=== PATIENT | female | born 1960 | race Caucasian/White ===

== ENCOUNTER 2016-08-17 11:00 | Outpatient (CLI) | payer OTHER, MEDICARE ==
[~2016-08-17] VITALS: Ht 157.5 cm; Wt 49.1 kg
--- NOTE | ~2016-08-17 | HEMODYNAMI ---
PATIENT:INDIANA HERNANDEZ MEDICAL RECORD: [id number] : 58 LOCATION:[facility] ADMISSION DATE: 08/17/16 Generatedon:08/17/201614:13 Patient name: INDIANA HERNANDEZ Patient #: [id number] SS N: : 1960 Date of study: 08/17/2016 Page: Of Hemodynamic Procedure Report Patient Data Patient Demographics Procedure consent was obtained First Name: INDIANA Gender: Female Last Name: DAVID : 1960 Patient #: [id number] Age: 56 year(s) Race: Additional ID: [id number] Contact details [address]: [address] [place] [address] State: [place] City: [place] Zip code: [address] Past Medical History Allergies: No known allergies Admission Admission Data Admission Date: 08/17/2016 Admission Time: 11:00 Admit Source: Other Lab Results Lab Result Date: 08/17/2016 Lab Result Time: 0:00 Biochemistry Name Units Result Min Max Creatinine mg/dl 0.8 --(-*--)-- 0.6 1.3 CBC Name Units Result Min Max Hemoglobin g/dl 13.9 --(*---)-- 13.5 17.5 Procedure Procedure Types Cath Procedure Diagnostic Procedure [facility] w/Coronaries PCI Procedure Coronary Stent Initial Procedure Description Procedure Date Procedure Date: 08/17/2016 Procedure Start Time: 13:41 Procedure End Time: 14:12 Procedure Staff Name Function Jason Shipman MD Performing Physician Sebastien Leslie RT Scrub Giorgio Stewart RN Nurse Olivier Moran RN Octave Board Assembler Lillie Ferreira RT Monitor Procedure Data Cath Procedure Fluoroscopy Diagnostic fluoroscopy Total fluoroscopy Time: 7.2 time: 7.2 min min Diagnostic fluoroscopy Total fluoroscopy dose: dose: 1025 mGy 1025 mGy Contrast Material Contrast Material Type Amount (ml) Isovue 300 144 Entry Location Entry Primary Successful Side Size Upsize Upsize Entry Closure [place] ccessful Closure Location (Fr) 1 (Fr) 2 (Fr) Remarks Device Remarks Radial Right 6 Fr Mechanical artery Short Compression Estimated blood loss: 10 ml Diagnostic catheters Device Type Used For End Catheter Placement Terumo 5Fr [place] 110cm LV Angiography catheter Terumo 5Fr [place] 110cm Right Coronary catheter Angiography Terumo 5Fr [place] 110cm Left Coronary catheter Angiography Procedure Complications No complications Procedure Medications Medication Administration Route Dosage Oxygen NC 2 l/min Benadryl I.V. 50 mg Lidocaine 2% added to field 20 Heparin Flush Bag added to field 2 bags (1000units/500ml NS) 0.9% NaCl I.V. 100 ml/hr Radial Cocktail added to field 1 syringe (Verapomil 2mg/Nitro 400mcg/Heparin 1500units) Versed I.V. 1 mg Fentanyl I.V. 50 mcg Radial Cocktail I.A. 1 syringe (Verapomil 2mg/Nitro 400mcg/Heparin 1500units) Versed I.V. 1 mg Fentanyl I.V. 50 mcg Versed I.V. 1 mg Fentanyl I.V. 50 mcg Heparin Bolus I.V. 7500 units Plavix P.O. 600 mg Hemodynamics Rest HGB: 13.9 (g/dl) Heart Rate: 74 (bpm) Pressure Samples Time Site Value (mmHg) Purpose Heart Use Rate(bpm) 13:44 LV 120/10,16 Snapshot 89 Gradients Valve Time Site Site Mean SEP/DFP Peak To Heart Use 1 2 (mmHg) (sec/min) Peak Rate (mmHg) (bpm) Aortic 13:44 LV AO 77 Snapshots Pre Cath Intra NCS Post Cath Vital Signs Time Heart Resp SPO2 etCO2 XQ5ibed NIBP (mmHg) Rhythm Pain Sedation Rate (ipm) (%) (mmHg) (mmHg) Status Level (bpm) 13:27:38 71 13 100 0 0 137/93(105) NSR 0 (11) 10(A) , No pain 13:31:45 74 16 100 0 0 132/96(120) NSR 0 (11) 10(A) , No pain 13:35:57 73 15 99 0 0 132/79(96) NSR 0 (11) 10(A) , No pain 13:40:09 76 16 98 0 0 119/79(98) NSR 0 (11) 10(A) , No pain 13:44:21 94 14 98 0 0 111/66(93) NSR 0 (11) 9(A) , No pain 13:48:27 80 16 97 0 0 106/72(85) NSR 0 (11) 9(A) , No pain 13:52:31 84 15 95 0 0 112/74(92) NSR 0 (11) 9(A) , No pain 13:56:38 89 15 94 0 0 110/69(94) NSR 0 (11) 9(A) , No pain 14:00:46 90 14 94 0 0 114/67(91) NSR 0 (11) 10(A) , No pain 14:04:52 90 14 96 0 0 134/77(102) NSR 0 (11) 10(A) , No pain 14:09:02 89 19 98 0 0 136/88(114) NSR 0 (11) 10(A) , No pain Medications Time Medication Route Dose Verified Delivered Reason Note s Effectiveness by by 13:30:08 Oxygen NC 2 l/min Jason Buffie used for Dax Stewart RN procedure 13:30:19 Benadryl I.V. 50 mg Jason Buffie used for Dax Stewart RN procedure 13:30:27 Lidocaine 2% added 20ml Jason Jason for local to vial Dax Shipman MD anesthetic field 13:30:35 Heparin Flush added 2 bags Jason Jason used for Bag to Dax Shipman MD procedure (1000units/500ml field NS) 13:30:45 0.9% NaCl I.V. 100 Jason Buffie Per physician ml/hr Dax Stewart RN 13:34:52 Radial Cocktail added 1 Jason Buffie for (Verapomil to syringe Dax Stewart RN vasodilation 2mg/Nitro field 400mcg/Heparin 1500units) 13:40:16 Versed I.V. 1 mg Jason Buffie for sedation Dax Stewart RN 13:40:21 Fentanyl I.V. 50 mcg Jason Buffie for sedation Dax Stewart RN 13:43:22 Radial Cocktail I.A. 1 Jason Jason for (Verapomil syringe Dax Shipman MD vasodilation 2mg/Nitro 400mcg/Heparin 1500units) 13:43:26 Versed I.V. 1 mg Jason Buffie for sedation Dax Stewart RN 13:43:32 Fentanyl I.V. 50 mcg Jason Buffie for sedation Dax Stewart RN 13:47:21 Versed I.V. 1 mg Jason Buffie for sedation Dax Stewart RN 13:47:25 Fentanyl I.V. 50 mcg Jason Gaurangie for sedation Dax Stewart RN 13:52:32 Heparin Bolus I.V. 7,500 Jason Gaurangie for veri fied units Dax Stewart RN anticoagulation with dr shipman 14:06:31 Plavix P.O. 600 mg Jason Buffie for Dax Stewart RN antiplatelet therapy Procedure Log Time Note 13:17:50 Admit Source: Other 13:17:53 Diagnostic Cath status Elective 13:17:55 Olivier Moran RN sent for patient. Start room use. 13:17:57 Time tracking: Regular hours 13:18:00 Plan of Care:Hemodynamics will remain stable., Cardiac rhythm will remain stable., Comfort level will be maintained., Respiratory function will remain adequate., Patient/ family verbilizes understanding of procedure., Procedure tolerated without complication., Recovers from procedure without complications.. 13:20:24 Patient received from Outpatients to [facility] 2 Alert and oriented. Tansferred to table in Supine position. 13:20:25 Warm blankets applied, and jersey hugger turned on for patient comfort. 13:20:26 Correct patient and procedure confirmed by team. 13:20:27 Signed procedure consent form obtained from patient. 13:20:30 ECG and BP/O2 sat monitors applied to patient. 13:20:30 Full Disclosure recording started 13:26:41 Vital chart was started 13:30:08 Oxygen 2 l/min NC was given by Giorgio Stewart RN; used for procedure; 13:30:19 Benadryl 50 mg I.V. was given by Giorgio Stewart RN; used for procedure; 13:30:27 Lidocaine 2% 20ml vial added to field was given by Jason Shipman MD; for local anesthetic; 13:30:35 Heparin Flush Bag (1000units/500ml NS) 2 bags added to field was given by Jason Shipman MD; used for procedure; 13:30:45 0.9% NaCl 100 ml/hr I.V. was given by Giorgio Stewart RN; Per physician; 13:34:01 Baseline sample Acquired. 13:34:05 Rhythm: sinus rhythm 13:34:52 Radial Cocktail (Verapomil 2mg/Nitro 400mcg/Heparin 1500units) 1 syringe added to field was given by Giorgio Stewart RN; for vasodilation; 13:35:08 H&P Date Dictated: 08/09/2016 Within 30 days and on chart., H&P Addendum completed by physician on day of procedure. (MUST COMPLETE FOR ALL OUTPATIENTS). 13:35:11 Pre-procedure instructions explained to patient. 13:35:12 Pre-op teaching completed and patient verbalized understanding. 13:35:13 Family in waiting room. 13:35:16 Patient NPO since Midnight. 13:35:24 Patient allergic to No known allergies 13:35:30 Is the patient allergic to Iodine/contrast media? No. 13:35:33 Is patient on blood thinner?No 13:35:41 Patient diabetic? No. 13:35:47 Previous problem with sedation/anesthesia? No ? 13:35:48 Snore? No 13:35:49 Sleep apnea? No 13:35:50 Deviated septum? No 13:35:51 Opens mouth fully? Yes 13:35:51 Sticks out tongue? Yes 13:35:55 Airway obstruction? Yes COPD 13:35:57 Dentures? No ? 13:36:02 Pre procedure: right dorsailis pedis pulse 2+ Normal; easily identifiable; not easily obliterated 13:36:04 Modified Kris's test Ulnar < 7 seconds 13:36:07 Patient pain scale 0/10 ?. 13:36:13 IV patent on arrival in left hand with 0.9% NaCl at [facility]. 13:36:21 Lab results completed and on chart. 13:36:25 Right Radial & Right Groin area was prepped with chlora-prep and draped in sterile fashion 13:36:26 Alarms reviewed by R. N. 13:36:27 Sharps counted by scrub and verified by R.N. 13:37:43 Lab Result : Creatinine 0.8 mg/dl 13:37:43 Lab Result : Hemoglobin 13.9 g/dl 13:38:06 Final Timeout: patient, procedure, and site verified with staff and physician. All members of the team are in agreement. 13:38:12 Right Radial site verified by team. 13:38:15 Physical assessment completed. ASA score P 2 - A patient with mild systemic disease as per Jason Shipman MD. 13:38:18 Sedation plan: IV Moderate Sedation Versed, Fentanyl 13:39:45 Procedure started. 13:40:16 Versed 1 mg I.V. was given by Giorgio Stewart RN; for sedation; 13:40:21 Fentanyl 50 mcg I.V. was given by Giorgio Stewart RN; for sedation; 13:41:20 Local anesthetic to right radial artery with Lidocaine 2% by Jason Shipman MD.INITIAL ACCESS ONLY 13:41:40 Zero performed for pressure channel P1 13:42:39 A 6 Fr Short sheath was inserted into the Right Radial artery 13:43:22 Radial Cocktail (Verapomil 2mg/Nitro 400mcg/Heparin 1500units) 1 syringe I.A. was given by Jason Shipman MD; for vasodilation; 13:43:26 Versed 1 mg I.V. was given by Giorgio Stewart RN; for sedation; 13:43:32 Fentanyl 50 mcg I.V. was given by Giorgio Stewart RN; for sedation; 13:43:58 A Terumo 5Fr [place] 110cm catheter was advanced over the wire and used for LV Angiography. 13:44:21 LV gram done using MARTINEZ 13:44:22 LV hemodynamics recorded. 13:44:25 Injector settings: Ml/sec: 5, Volume: 15, 13:44:30 EF : 60 % 13:44:47 Catheter removed. 13:44:55 A Terumo 5Fr [place] 110cm catheter was advanced over the wire and used for Right Coronary Angiography. 13:47:03 A Terumo 5Fr [place] 110cm catheter was advanced over the wire and used for Left Coronary Angiography. 13:47:21 Versed 1 mg I.V. was given by Giorgio Stewart RN; for sedation; 13:47:25 Fentanyl 50 mcg I.V. was given by Giorgio Stewart RN; for sedation; 13:48:18 Cordis 6FR XBLAD 3.5 guide catheter opened to sterile field. 13:48:18 High Pressure Extension Tubing (Dax) opened to sterile field. 13:48:19 Fisher BMW [place] 2 J-tip 300cm 0.014 guide wir opened to sterile field. 13:48:19 Merit BasixCompak Inflation Kit opened to sterile field. 13:48:28 ACC PCI Site: mCirc has 95% stenosis. 13:48:30 ACC Pre-intervention RADHA Flow is 2. 13:50:57 6 Fr XBLAD 3.5 guide catheter was inserted over the wire 13:52:32 Heparin Bolus 7,500 units I.V. was given by Giorgio Stewart RN; for anticoagulation; verified with dr shipman 13:53:30 BMW wire advanced. 13:56:42 Inflation number: 1 A Harrison Sci [place] 2.0 X 15 balloon was prepped and advanced across the Mid CX, then inflated to 10 JESSICA for 0:19 (min:sec). 13:58:05 Inflation number: 2 The Harrison Sci [place] 2.0 X 15 balloon was reinflated across the Mid CX, to 16 JESSICA for 0:20 (min:sec). 13:58:33 Balloon removed over the wire. 14:01:47 Inflation Number: 3 A Dolor Technologiestronic Integrity 2.5 X 18 stent was prepped and advanced across the Mid CX. The stent was deployed at 16 JESSICA for 0:18 (min:sec). 14:02:21 Stent catheter was removed intact over wire. 14:02:26 Wire removed. 14:02:27 Guide catheter removed. 14:02:57 Terumo TR Band Standard opened to sterile field. 14:03:06 Sheath removed intact; hemostasis achieved with Mechanical Compression to the Right Radial artery. 14:03:08 Procedure ended.(Physican Out) 14:03:21 Fluoroscopy time 07.20 minutes. 14:03:27 Fluoroscopy dose: 1025 mGy 14:03:27 Flurop Dose total: 1025 14:03:32 Contrast amount:Isovue 300 144ml. 14:03:34 Sharps counted by scrub and verified by R.N. 14:03:53 TR band inflated with 12cc of air. 14:03:54 Insertion/operative site no bleeding no hematoma. 14:04:01 Post right radial artery:stable, clean and dry 14:04:03 Post Procedure Pulses reassessed and unchanged 14:04:06 Post-procedure physical assessment completed. ASA score P 2 - A patient with mild systemic disease as per Jason Shipman MD. 14:04:08 Post procedure rhythm: unchanged. 14:04:11 Estimated blood loss: 10 ml 14:04:13 Post procedure instruction explained to patient.Patient verbalizes understanding. 14:04:13 Patient needs reinforcement of post procedure teaching. 14:04:24 Procedure type changed to Cath procedure, Diagnostic procedure, LHC, LHC w/Coronaries, PCI procedure, Coronary Stent Initial 14:04:30 Procedure Complication : No complications 14:04:32 See physician's report for complete and final results. 14:05:03 Use device set Radial Dx 14:05:04 Acist Syringe opened to sterile field. 14:05:04 Cardinal Cath Pack opened to sterile field. 14:05:05 Bag Decanter opened to sterile field. 14:05:05 Terumo 6Fr Slender Glidesheath opened to sterile field. 14:05:06 St Jameel 260cm J .035 wire opened to sterile field. 14:05:07 Acist Hand Control opened to sterile field. 14:05:07 Acist Manifold opened to sterile field. 14:05:53 Cook 21G 4cm Radial Needle opened to sterile field. 14:06:31 Plavix 600 mg P.O. was given by Giorgio Stewart RN; for antiplatelet therapy; 14:07:38 Procedure and supply charges have been captured, reviewed, submitted and are correct. 14:12:17 Vital chart was stopped 14:12:19 Report given to Post Procedure Room. 14:12:22 Patient transfered to Post Procedure Room with Stretcher. 14:12:31 Procedure ended. 14:12:31 Full Disclosure recording stopped 14:12:53 End room use (Document Last) Intervention Summary Intervention Notes Time ActionType Lesion and Equipment Action# Pressure Duration Attributes Used 13:56:42 Inflate Mid CX Harrison 1 10 00:19 balloon Sci [place] 2.0 X 15 balloon 13:58:05 Reinflate Mid CX Harrison 2 16 00:20 balloon Sci [place] 2.0 X 15 balloon 14:01:47 Place stent Mid CX Medtronic 3 16 00:18 Integrity 2.5 X 18 stent Device Usage Item Name Manufacture Quantity Catalog Number [facility] Part Current [facility] Lot# / Charge Number Stock Stock Serial# Code Terumo 5Fr Terumo 1 [id number] 5 [place] 110cm catheter Cordis 6FR Cardinal 1 [id number] 155819 035053 10 XBLAD 3.5 Health guide catheter High Merit 1 [id number] 556438 58228 144137 10 Pressure Medical Extension Tubing (Shipman) Fisher BMW Fisher 1 [id number] 748597 780550 5 Avoca 2 Vascular J-tip 300cm 0.014 guide wir Merit Merit 1 [id number] 836336 416267 341437 15 BasixCompak Medical Inflation Kit Harrison Sci Harrison 1 [id number] 316618 418959 980278 1 [id number] TimZon 2.0 X 15 balloon Medtronic Medtronic 1 [id number] 636618 071789 317413 4 [id number] Integrity 2.5 X 18 stent Terumo TR Terumo 1 [id number] 166824 277956 241575 40 Band Standard Acist Acist 1 77784 797104 222692 894845 20 Syringe Medical Systems Inc Cardinal Cardinal 1 [id number] 826400 30521 322280 5 Cath Pack Health Bag Microtek 1 2002 691053 81750 782681 5 Decanter Medical Inc. Terumo 6Fr Terumo 1 [id number] 207743 515859 286726 [address] Jameel St Jameel 1 893174 308010 282804 315041 30 260cm J .035 wire Acist Hand Acist 1 90489 226329 478821 537070 5 Control Medical Systems Inc Acist Acist 1 00171 286026 771598 320947 5 Manifold Medical Systems Inc Cook 21G Yuma Medical 1 [id number] 200359 419017 5 4cm Radial Needle Signature Audit [place] Stage Time Signature Unsigned Intra-Procedure 08/17/2016 Lillie 2:13:10 PM Counts RT(R) Signatures Monitor : Lillie Signature : Counts RT Date : Time : [place] [id number] [place] [id number]
[2016-08-17] MEDS ORDERED: PROTONIX40 MG PO (11:52)
[2016-08-17] MEDS ORDERED: NEURONTIN600 MG PO (11:52)
[2016-08-17] MEDS ORDERED: PLAQUENIL200 MG PO (11:52)
[2016-08-17] MEDS ORDERED: CELEXA20 MG PO (11:53)
[2016-08-17] MEDS ORDERED: PRINZIDE 20-251 TA1 PO (11:53)
[2016-08-17] MEDS ORDERED: BROVANA15 MCG/2 M INH (11:54)
[2016-08-17] MEDS ORDERED: CYCLOBENZAPRINE10 MG PO (11:54)
[2016-08-17] MEDS ORDERED: MOBIC7.5 MG PO (11:54)
[2016-08-17 11:58] LABS: BASOPHILS 0.4 % (0.0-2.0); EOSINOPHILS 2.8 % (0-7); HEMATOCRIT 41.9 % (36.0-48.0); HEMOGLOBIN 13.9 g/dL (12-16); IMMATURE GRANULOCYTES 0.2 % (0-5); MCH 29.1 pg (26.0-34.0); MCHC 33.2 g/dL (31.0-37.0); MCV 87.8 fL (80.0-100.0); MEAN PLATELET VOLUME 9.7 fL (7.4-10.4); MONOCYTES 7.5 % (2-11); NEUTROPHILS 72.1 % (40-80); PLATELET COUNT 301 10x3/uL (130-400); RBC 4.77 10x6/uL (4.00-5.40); WBC 8.9 10x3/uL (4.8-10.8)
[2016-08-17 12:01] LABS: CALC OSMOLALITY 279 mosm/kg (275-300); CALCIUM 9.4 mg/dL (8.5-10.1); CARBON DIOXIDE 29.6 mmol/L (21.0-32.0); CHLORIDE - SERUM 101 mmol/L (98-107); CREATININE - SERUM 0.8 mg/dL (0.6-1.3); GLUCOSE 114 mg/dL (74-106); POTASSIUM - SERUM 4.2 mmol/L (3.5-5.1); SODIUM 139 mmol/L (136-145); UREA NITROGEN 15 mg/dL (7-18); eGFR NON AFRICAN AMERICAN 78 mL/min (90-120)
[2016-08-17 12:02] VITALS: BP 121/81; Ht 157.5 cm; Wt 49.1 kg
[2016-08-17] MEDS ORDERED: PLAVIX75 MG PO (14:18)
[2016-08-17] MEDS ORDERED: BAYER CHEWABLE81 MG PO (14:19)
--- NOTE | 2016-08-17 14:40 | NUR ---
HR 76 WITH CHEST PAIN DENIED BP 121/58 NO DISTRESS NOTED. TR BAND TO R/WRIST CDI NO BLEEDING NO HEMATOMA NOTED. SITTING WITH HOB UP 30 DEGREES TALKING TO FAMILY
--- NOTE | 2016-08-17 15:17 | NUR ---
REPORT CALLED TO ITALO HARVEY IN OPS. TRANSFERRED TO OPS VIA STRETCHER WITH ALL BELONGINGS AND FAMILY AT SIDE.
--- NOTE | 2016-08-17 15:17 | NUR ---
1500 RESTING WITH EYES CLOSED. NSR RATE 76 W NO C/O CHEST PAIN. PULSES PALP X 4. ROOM AIR WITH NO DISTRESS. R WRIST TR BAND C/D/I WITH NO HEMATOMA OR BLEEDING. SIPPING ON SODA W NO NAUSEA. FAMILY AT BEDSIDE.
--- NOTE | 2016-08-17 15:51 | NUR ---
1525 BACK FROM CATH RECOVERY. PATENT AWAKE AND TALKING. RT WRIST TRBAND ON C/C/I NO BLEEDING RADIAL PULSE PRESENT.C/L IN REACH.
--- NOTE | 2016-08-17 15:53 | NUR ---
1540 INSTRUCTED NOT TO MOVE RT WRIST.
--- NOTE | 2016-08-17 19:33 | NUR ---
1715 3CC OF AIR REMOVED FROM TRBAND NO BLEEDING.
--- NOTE | 2016-08-17 19:33 | NUR ---
1700 3CC OF AIR REMOVED FROM TRBAND NO BLEEDING.
--- NOTE | 2016-08-17 19:34 | NUR ---
1755 UP TO THE BR. DISCHARGE INSTRUCTIONS AND POST CATH INSTRUCTIONS GONE OVER. GAVE PATIENT PLAVIX SCRIPT EXPLAINED HOW TO TAKE IT TO TAKE IT WITH FOOD. STENT CARD GIVEN TO PATIENT.
--- NOTE | 2016-08-17 19:34 | NUR ---
1745 3CC OF AIR REMOVED FROM TRBAND NO BLEEDING.
--- NOTE | 2016-08-17 19:34 | NUR ---
1730 3CC OF AIR REMOVED FROM TRBAND NO BLEEDING.
--- NOTE | 2016-08-17 19:36 | NUR ---
1800 VOIDED. TO HOME VIA W/C. TRBAND OFF.NO BLEEDING.
--- NOTE | 2016-08-22 15:45 | OP ---
PATIENT NAME: INDIANA MARSHALL MEDICAL RECORD: [id number] :58 LOCATION:D.CAT ADMISSION DATE: SURGEON: SYLVIA HUMMEL M.D. DATE OF OPERATION: 08/17/2016 Catheterization Report REFERRING PHYSICIAN: Elizabeth Escoto MD PROCEDURES PERFORMED: 1. Selective coronary angiography. 2. Left heart catheterization with ventriculogram. 3. PTCA and stent placed in the circumflex artery. INDICATION: A 56-year-old woman presents with accelerating angina. EQUIPMENT USED: Diagnostic 5-Colombian [place] catheter. INTERVENTION: A 6-Colombian XB LAD guide, BMW guide wire, 2.0 x 15 mm Campbell balloon, 2.5 x 18 mm Integrity stent. TECHNIQUE: A 6-Colombian sheath was inserted in retrograde fashion in the right radial artery. Next, selective coronary angiography was performed in standard views using 5-Colombian [place] catheter. Left heart catheterization was performed using [place] catheter as well. CORONARY ANATOMY: 1. Left main: Left main trunk is large in caliber. It gives rise to the LAD and circumflex. It is widely patent. 2. LAD: This is a large caliber vessel extending to the apex. It gives rise to a moderate caliber diagonal mid segment. The LAD and diagonal are angiographically normal. 3. Circumflex: This vessel is moderate in caliber. The proximal vessel has an ulcerated 95% stenosis. 4. Right coronary: This vessel is large in caliber and dominant. It is a smooth-walled vessel and angiographically normal. 5. Left ventricle: Left ventricle is normal in size and function. No wall motion abnormalities are seen. Estimated ejection fraction is 60%. DESCRIPTION OF INTERVENTION: A 100 units per kilogram of heparin was infused. A 6-Colombian XB LAD guide was advanced and engaged in the left main coronary artery. Next, a BMW guide wire was placed down the distal circumflex. It was predilated with 2.0 x 15 mm Campbell balloon at 16 atmospheres. Injection revealed persistent 70% residual stenosis. A 2.5 x 18 mm Integrity stent was placed across the stenosis and deployed at 16 atmospheres. Injection reveals stent to be widely patent with 0% residual stenosis. There is marked improvement in distal flow. At this point, the wire and guide were removed. IMPRESSION: Successful percutaneous transluminal coronary angioplasty and stent in the circumflex. TRANSINT:[id number] Voice Confirmation ID: [id number] DOCUMENT ID: [id number] OPERATIVE REPORT [id number] INDIANA MARSHALL TIMOTHY E M.D. at 1545 CC: [id number] DICTATION DATE: 08/17/161409 WEB SITE ADMINISTRATOR: 08/17/16 1418 DEP CLI 08/17/16 [place] [id number] [place] [id number]
== END 2016-08-17 18:00 | disposition home or self-care (01) ==
LOC: D.CATH 11:00
PROVIDERS: Internal Medicine Cardiovascular Disease
DX: I25.110 Atherosclerotic heart disease of native coronary artery with unstable angina pectoris (principal)